=== PATIENT | female | born 1965 | race Caucasian/White ===

== ENCOUNTER 2016-07-02 04:24 | Inpatient (IN) | payer OTHER ==
[2016-07-02] MEDS ORDERED: DUONEB (A & A) INH ONE (04:32)
[2016-07-02 04:45] LABS: MANUAL DIFF NEEDED? NO
[2016-07-02 04:46] LABS: BASO% 0.2 % (0.0-0.8); EOS# 0.01 X1000 (0.0-0.7); EOS% 0.1 % (0.0-10.0); HEMATOCRIT 43.8 % (37.0-47.0); HEMOGLOBIN 13.5 g/dL (12.0-16.0); IMM GRAN# 0.08 X1000 (0.0-0.04); IMM GRAN% 0.5 % (0.0-0.5); LYMPH# 1.86 X1000 (1.2-3.4); LYMPH% 11.2 % (20.5-51.1); MCH 29.2 PG (27-31); MCHC 30.8 g/dL (33-37); MCV 94.8 FL (81-99); MONO# 1.42 X1000 (0.11-0.59); MONO% 8.5 % (1.7-9.3); MPV 9.4 FL (7.4-10.4); NEUT% 79.5 % (42.2-75.2); PLT 260 X1000 (130-400); RBC 4.62 XMIL (4.2-5.4)
[2016-07-02 04:58] LABS: INR 0.92 (0.86-1.15); PROTIME 12.7 Seconds (12.1-15.5)
[2016-07-02 04:59] LABS: PTT PL 24.5 Seconds (22.6-43.9)
[2016-07-02 05:12] LABS: AGAP 11; ALBUMIN 4.5 g/dL (3.5-5.0); ALKALINE PHOSPHATASE 64 U/L (32-104); BUN 19 mg/dL (8-22); CALCIUM 9.1 mg/dL (8.8-10.2); CHLORIDE 98 mmol/L (98-107); CK PROFILE 79 U/L (24-173); COSMO 291; GOT 18 U/L (10-30); GPT 18 U/L (10-36); MAGNESIUM 1.8 mg/dL (1.5-2.7); POTASSIUM 4.2 mmol/L (3.5-5.1); SODIUM 142 mmol/L (136-145); TCO2 33 mmol/L (25-35); TOTAL PROTEIN 7.2 g/dL (6.3-8.3)
--- NOTE | 2016-07-02 05:35 | PROVIDER DOCUMENTATION ---
HPI-Respiratory General - General Source: patient - History of Present Illness-Resp Severity in ED: reports: severe Onset/Duration: reports: unsure, this morning Timing: reports: still present, improving Episode Frequency: occasional episodes Current Respiratory Medication Therapy: Initiated A/A nebulizer Modifying Factors: improves with: albuterol nebulizer, oxygen Associated Symptoms: reports: hyperventilating. denies: cough, nasal drainage Similar Symptoms Previously?: Yes Recently seen or treated by another doctor?: No <Robi Delcid - Last Filed: 07/02/16 05:30> <Fco Aguayo - Last Filed: 07/02/16 07:28> - General Chief Complaint: Shortness of Breath Stated Complaint: AMS, LOW O2 SAT Time Seen by Provider: 07/02/16 05:29 Allergies/Adverse Reactions: Patient Allergies Allergy/AdvReac Type Severity Reaction Status Date / Time oxycodone HCl * Allergy Unknown HEADACHE Verified 07/02/16 04:43 [From OxyContin] Home Medications: Home Medication List Medication Instructions Recorded Confirmed Last Taken Type Acetaminophen [Tylenol] 650 mg PO Q6H PRN 03/05/16 07/02/16 03/03/16 09:00 History Albuterol Sulfate 1 dose NEB 4XDAY 03/05/16 07/02/16 03/04/16 20:30 History Aspirin [Adult Low Dose Aspirin EC] 81 mg PO DAILY 03/05/16 07/02/16 03/04/16 08 :30 History Benztropine [Cogentin] 1 mg PO 4XDAY 03/05/16 07/02/16 03/04/16 20:30 History Budesonide/Formoterol Fumarate 10.2 gm IH BID 03/05/16 07/02/16 03/04/16 20:30 History [Symbicort 160-4.5 Mcg Inhaler] Digoxin [Digox] 125 mcg PO DAILY 03/05/16 07/02/16 03/04/16 08:00 History Divalproex Sodium [Depakote ER] 500 mg PO HS 03/05/16 07/02/16 03/04/16 20:30 History Famotidine [Pepcid] 40 mg PO DAILY 03/05/16 07/02/16 03/04/16 06:00 History Ipratropium [place] Neb [Atrovent 1 dose NEB DAILY 03/05/16 07/02/16 Unknown History Neb] Lactobacillus Rhamnosus GG 1 each PO BID 03/05/16 07/02/16 03/04/16 16:30 History [Culturelle] Levothyroxine [Synthroid] 25 microgm PO DAILY 03/05/16 07/02/16 03/04/16 06:00 History Losartan [Cozaar] 25 mg PO DAILY 03/05/16 07/02/16 03/04/16 08:30 History Magnesium Hydroxide [Milk of 30 ml PO DIRECTED 03/05/16 07/02/16 03/03/16 20: 30 History Magnesia] Megestrol Acetate 40 mg PO DAILY 03/05/16 07/02/16 03/04/16 08:30 History Melatonin 3 mg PO QHS 03/05/16 07/02/16 03/04/16 20:30 History Metoprolol Succinate E.r. [Toprol 25 mg PO BID 03/05/16 07/02/16 03/04/16 16:30 History Xl] Montelukast [Singulair] 10 mg PO QHS 03/05/16 07/02/16 03/04/16 20:30 History Nitroglycerin 0.4 mg SL DIRECTED 03/05/16 07/02/16 Unknown History Olanzapine [Zyprexa] 10 mg PO HS 03/05/16 07/02/16 03/04/16 20:30 History Polyethylene Glycol 3350 [Miralax] 17 gm PO DIRECTED 03/05/16 07/02/16 20:30 History Pravastatin Sodium [Pravachol] 20 mg PO HS 03/05/16 07/02/16 03/04/16 20:30 History Tamsulosin [Flomax] 0.4 mg PO DAILY 03/05/16 07/02/16 03/04/16 08:30 History Trazodone [Desyrel] 150 mg PO QHS 03/05/16 07/02/16 03/04/16 20:30 History Prednisone 20 mg PO DAILY #30 tablet 03/13/16 07/02/16 Unknown Rx Buspirone HCl 7.5 mg PO QHS 07/02/16 07/02/16 Unknown History Lorazepam [Ativan] 1 mg PO BID 07/02/16 07/02/16 Unknown History Lorazepam [Ativan] 1 mg PO QHS 07/02/16 07/02/16 Unknown History Tramadol [Ultram] 50 mg PO Q4H PRN PRN 07/02/16 07/02/16 Unknown History - History of Present Illness-Resp Nature of Presenting Problem: found on the floor by bed without o2 sats in 49.hx of copd and alzheimers on lots of meds (Robi Delcid) Review of Systems - Adult - REVIEW OF SYSTEMS - ADULT Constitutional: denies: fever Eyes: denies: redness Cardiovascular: reports: other (tachycardia) Respiratory: reports: shortness of breath, wheezing. denies: chronic cough, hemoptysis Gastrointestinal: denies: vomiting Genitourinary: reports: no symptoms reported Musculoskeletal: reports: no symptoms reported Integumentary: reports: no symptoms reported Neurological: reports: no symptoms reported Psychiatric: reports: other (demented) Endocrine: reports: no symptoms reported Hematologic/Lymphatic: reports: no symptoms reported Allergic/Immunologic: reports: no symptoms reported <Robi Delcid - Last Filed: 07/02/16 05:30> Past History - Adult - PAST MEDICAL HISTORY-ADULT Review of Records: reports: Nursing Assessment Review, Medications Reviewed, Social history reviewed & non-contributory. Major Childhood Illnesses: reports: denies history Cardiovascular: reports: CAD, CHF, HTN, hyperlipidemia, [place] Respiratory: reports: asthma, COPD, sleep apnea Gastrointestinal: reports: denies history Obstetrical/Gynecological: reports: denies history Genitourinary: reports: denies history Musculoskeletal: reports: denies history Neurological: reports: denies history Psychiatric: reports: bipolar Endocrine/Immune: reports: denies history Other Conditions: reports: denies history - PRIOR SURGERIES/PROCEDURES Surgical/Procedure History: reports: hysterectomy - PRIOR HOSPITALIZATIONS Prior Hospitalizations: reports: for similar symptoms - IMMUNIZATION STATUS Childhood Immunizations: See Nurse Assessment Flu Vaccine: See Nurse Assessment - FAMILY HISTORY Family History: reviewed, not pertinent <Robi Delcid - Last Filed: 07/02/16 05:30> Physical Exam-General - PHYSICAL EXAM-ADULT Initial Vital Signs Reviewed: Yes - CONSTITUTIONAL General Appearance: severe distress - EYES Eyes: PERRL/EOMI - HEAD, EARS, NOSE, MOUTH & THROAT HENMT: normocephalic/atraumatic, pharynx normal - NECK Neck: supple - RESPIRATORY Respiratory: respiratory distress, rhonchi, wheezing, increased rate - CARDIOVASCULAR Cardiovascular: tachycardia - GASTROINTESTINAL (ABDOMEN) Abdominal Exam: soft, distended. negative: guarding, rigid, rebound, tenderness - LYMPHATIC Lymphatic: no adenopathy - MUSCULOSKELETAL Back Exam: normal inspection Extremity: normal range of motion. negative: pedal edema, swelling - SKIN Integumentary: normal color, normal turgor - NEUROLOGIC Neurologic: grossly normal - PSYCHIATRIC Psych/Mental Status: oriented x 3 <Robi Delcid - Last Filed: 07/02/16 05:30> Progress - EKG 1 Time of EKG reading by physician:: 05:38 EKG Read and Signed by:: Robi Delcid EKG Interpretation (*Must complete 3 of following elements*): Abnormal Rate: 149 Rhythm: sinus tachycardia [place]: normal QRS: Q Waves present ST Wave: normal Prior EKG Comparison: unchanged from prior - XRAY 1 XRAY Study: Chest Impression: Abnormal (increased interstitial markings) <Robi Delcid - Last Filed: 07/02/16 05:30> - REASSESSMENT Reassessment #1 Time Reassessed: 06:26 Status: unchanged (Took over pt's care at 6AM, and pt was examined. Pt is lethartgic and pt can answer simple questions. Daughter concerns for her mental status. ABG and CT head ordered. Cardizem 15mg IV given, because per check out her UV=188c before the breathing Tx.) Reassessment #2 Time Reassessed: 06:32 Status: other (ABG results came back- PCO2 = 86. Daughter states that pt is DNR , but wants intubation and ventilation and she was on vent before. After talking to daughter, she requests to have a trail for Bi-PAP and she does not want pt to be intubated yet.) - XRAY 1 XRAY Study: Chest XRAY Interpretation: Pulmonary edema - CT/MRI 1 CT Study: Head Impression: Normal - CONSULTS/PCP/HOSPITALIST Notification Time Discussed: 07:28 Reason/Comments: Admit to Dr. Benavidez/ICU <Fco Aguayo X - Last Filed: 07/02/16 07:28> - PLAN OF CARE/RESULTS Progress/Plan/Lab Results: Abnormal Lab Results 07/02/16 07/02/16 07/02/16 04:35 04:35 04:35 WBC RBC Hgb Hct MCV MCH MCHC RDW Std Deviation Plt Count MPV Immature Gran % (Auto) Neut % (Auto) Lymph % (Auto) Reagan % (Auto) Eos % (Auto) Baso % (Auto) Immature Gran # (Auto) Neut # (Auto) Lymph # (Auto) Reagan # (Auto) Eos # (Auto) Baso # (Auto) PT INR APTT (Factor Assay) D-Dimer Specimen Type Sample Site pH pCO2 pO2 HCO3 Base Excess Oxyhemoglobin ABG O2 Sat (Calculated) ABG O2 Saturation ABG Carboxyhemoglobin ABG Methemoglobin Shawn Test A-a O2 Difference Total Hemoglobin Lactate Liter Flow Blood Gas Modality FiO2 % Sodium 142 Potassium 4.2 Chloride 98 Carbon Dioxide 33 Anion Gap 11 BUN 19 Creatinine 0.7 Estimated GFR/1.73 m2 > 60 BUN/Creatinine Ratio 27 Glucose 195 H Calculated Osmolality 291 Calcium 9.1 Magnesium 1.8 Total Bilirubin 0.20 AST 18 ALT 18 Alkaline Phosphatase 64 Creatine Kinase 79 Troponin T 0.018 Tzu-M-Cyjjaucccyy Pept 319 H Total Protein 7.2 Albumin 4.5 Globulin 3.0 Albumin/Globulin Ratio 2.0 Urine Source Urine Color Urine Clarity Urine pH Ur Specific [place] Urine Protein Urine Ketones Urine Blood Urine Nitrite Urine Bilirubin Urine Urobilinogen Urine Microscopic RBC Urine WBC Urine Microscopic WBC Ur Epithelial Cells Urine Bacteria Urine Glucose 07/02/16 07/02/16 07/02/16 04:35 04:35 05:20 WBC 16.66 H RBC 4.62 Hgb 13.5 Hct 43.8 MCV 94.8 MCH 29.2 MCHC 30.8 L RDW Std Deviation 15.9 H Plt Count 260 MPV 9.4 Immature Gran % (Auto) 0.5 Neut % (Auto) 79.5 H Lymph % (Auto) 11.2 L Reagan % (Auto) 8.5 Eos % (Auto) 0.1 Baso % (Auto) 0.2 Immature Gran # (Auto) 0.08 H Neut # (Auto) 13.26 H Lymph # (Auto) 1.86 Reagan # (Auto) 1.42 H Eos # (Auto) 0.01 Baso # (Auto) 0.03 PT 12.7 INR 0.92 APTT (Factor Assay) 24.5 D-Dimer 1.12 H Specimen Type Sample Site pH pCO2 pO2 HCO3 Base Excess Oxyhemoglobin ABG O2 Sat (Calculated) ABG O2 Saturation ABG Carboxyhemoglobin ABG Methemoglobin Shawn Test A-a O2 Difference Total Hemoglobin Lactate Liter Flow Blood Gas Modality FiO2 % Sodium Potassium Chloride Carbon Dioxide Anion Gap BUN Creatinine Estimated GFR/1.73 m2 BUN/Creatinine Ratio Glucose Calculated Osmolality Calcium Magnesium Total Bilirubin AST ALT Alkaline Phosphatase Creatine Kinase Troponin T Kop-D-Jsqqopdobpy Pept Total Protein Albumin Globulin Albumin/Globulin Ratio Urine Source CATH Urine Color YELLOW Urine Clarity SL. CLOUDY A Urine pH 7.0 Ur Specific [place] 1.015 Urine Protein NEGATIVE Urine Ketones NEGATIVE Urine Blood NEGATIVE Urine Nitrite NEGATIVE Urine Bilirubin NEGATIVE Urine Urobilinogen NORMAL Urine Microscopic RBC <10 Urine WBC NEGATIVE Urine Microscopic WBC <10 Ur Epithelial Cells <10 Urine Bacteria 2+ Urine Glucose 1+(100 mg/dL) A 07/02/16 06:18 WBC RBC Hgb Hct MCV MCH MCHC RDW Std Deviation Plt Count MPV Immature Gran % (Auto) Neut % (Auto) Lymph % (Auto) Reagan % (Auto) Eos % (Auto) Baso % (Auto) Immature Gran # (Auto) Neut # (Auto) Lymph # (Auto) [place] # (Auto) Eos # (Auto) Baso # (Auto) PT INR APTT (Factor Assay) D-Dimer Specimen Type ARTERIAL Sample Site R RADIAL pH 7.31 L pCO2 84 H* pO2 61 HCO3 34.2 H Base Excess 12.2 H Oxyhemoglobin 89.5 L* ABG O2 Sat (Calculated) 17.2 ABG O2 Saturation 92.7 L ABG Carboxyhemoglobin 2.30 ABG Methemoglobin 1.2 Shawn Test YES A-a O2 Difference 119.0 Total Hemoglobin 13.7 Lactate 0.70 Liter Flow 5.0 Blood Gas Modality [place]ULA FiO2 % 40.0 Sodium Potassium Chloride Carbon Dioxide Anion Gap BUN Creatinine Estimated GFR/1.73 m2 BUN/Creatinine Ratio Glucose Calculated Osmolality Calcium Magnesium Total Bilirubin AST ALT Alkaline Phosphatase Creatine Kinase Troponin T Juz-O-Sjtjjacrttd Pept Total Protein Albumin Globulin Albumin/Globulin Ratio Urine Source Urine Color Urine Clarity Urine pH Ur Specific [place] Urine Protein Urine Ketones Urine Blood Urine Nitrite Urine Bilirubin Urine Urobilinogen Urine Microscopic RBC Urine WBC Urine Microscopic WBC Ur Epithelial Cells Urine Bacteria Urine Glucose Orders Category Date Time Status Cardiac Monitoring DIRECTED Care 07/02/16 04:33 Active Lomeli Cath Insertion ORDERED Care 07/02/16 05:17 Active Oxygen Therapy- ED Nursing DIRECTED Care 07/02/16 04:32 Active Saline Loc DIRECTED Care 07/02/16 04:32 Active CHEST-PORTABLE [RAD] Stat Exams 07/02/16 04:33 Taken HEAD W/O CONTRAST [CT] Stat Exams 07/02/16 06:18 Taken ABG [RESP] Routine Lab 07/02/16 06:18 Completed CBC WITH ELECTRONIC DIFF [HEME] Stat Lab 07/02/16 04:35 Completed CK PROFILE [SP CHEM] Stat Lab 07/02/16 04:35 Completed COMPREHENSIVE METABOLIC PANEL [CHEM] Stat Lab 07/02/16 04:[address] D-DIMER PL [COAG] Stat Lab 07/02/16 04:35 Completed MAGNESIUM [CHEM] Stat Lab 07/02/16 04:35 Completed PRO B-NATRIURETIC PEPTIDE Stat Lab 07/02/16 04:[address] Com[address]IME WITH INR PL [COAG] Stat Lab 07/02/16 04:[address] [COAG] Stat Lab 07/02/16 04:35 Completed TROPONIN T Stat Lab 07/02/16 04:[address] W/POSS RFLX CULT [URINALYSIS] Stat Lab 07/02/16 05:20 Completed URINE CULTURE [RM] Routine Lab 07/02/16 05:51 Ordered Albuterol 2.5MG/Ipratrop 0.5MG [Duoneb (A & A)] Med 07/02/16 04:32 Discontinued 3 ml INH NOW ONE Diltiazem [Cardizem] Med 07/02/16 06:18 Discontinued 20 mg IV NOW ONE Aerosol Treatments Routine Oth 07/02/16 04:33 Active Aerosol Treatments Stat Oth 07/02/16 04:32 Active Aerosol Treatments Stat Oth 07/02/16 04:33 Active Pulse Oximetry Stat Oth 07/02/16 04:32 Active EKG [EKG] Stat Ther 07/02/16 04:33 Ordered Vital Signs Temp Pulse Resp BP Pulse Ox 07/02/16 06:13 140 H 35 H 128/90 95 07/02/16 06:06 145 H 35 H 07/02/16 05:10 145 H 35 H 116/93 95 07/02/16 04:35 99 F 151 H 28 H 123/80 99 07/02/16 04:24 99 F 151 H 37 H 123/80 99 oxycodone HCl * [From OxyContin] Allergy (Unknown, Verified 07/02/16 04:43) HEADACHE Acetaminophen [Tylenol] 650 mg PO Q6H PRN 03/05/16 Albuterol Sulfate 1 dose NEB 4XDAY 03/05/16 Aspirin [Adult Low Dose Aspirin EC] 81 mg PO DAILY 03/05/16 Benztropine [Cogentin] 1 mg PO 4XDAY 03/05/16 Budesonide/Formoterol Fumarate [Symbicort 160-4.5 Mcg Inhaler] 10.2 gm IH BID Digoxin [Digox] 125 mcg PO DAILY 03/05/16 Divalproex Sodium [Depakote ER] 500 mg PO HS 03/05/16 Famotidine [Pepcid] 40 mg PO DAILY 03/05/16 Ipratropium [place] Neb [Atrovent Neb] 1 dose NEB DAILY 03/05/16 Lactobacillus Rhamnosus GG [Culturelle] 1 each PO BID 03/05/16 Levothyroxine [Synthroid] 25 microgm PO DAILY 03/05/16 Losartan [Cozaar] 25 mg PO DAILY 03/05/16 Magnesium Hydroxide [Milk of Magnesia] 30 ml PO DIRECTED 03/05/16 Megestrol Acetate 40 mg PO DAILY 03/05/16 Melatonin 3 mg PO QHS 03/05/16 Metoprolol Succinate E.r. [Toprol Xl] 25 mg PO BID 03/05/16 Montelukast [Singulair] 10 mg PO QHS 03/05/16 Nitroglycerin 0.4 mg SL DIRECTED 03/05/16 Olanzapine [Zyprexa] 10 mg PO HS 03/05/16 Polyethylene Glycol 3350 [Miralax] 17 gm PO DIRECTED 03/05/16 Pravastatin Sodium [Pravachol] 20 mg PO HS 03/05/16 Tamsulosin [Flomax] 0.4 mg PO DAILY 03/05/16 Trazodone [Desyrel] 150 mg PO QHS 03/05/16 Prednisone 20 mg PO DAILY #30 tablet 03/13/16 Buspirone HCl 7.5 mg PO QHS 07/02/16 Lorazepam [Ativan] 1 mg PO BID 07/02/16 Lorazepam [Ativan] 1 mg PO QHS 07/02/16 Tramadol [Ultram] 50 mg PO Q4H PRN PRN 07/02/16 I&O 07/01/16 07/02/16 07/03/16 06:59 06:59 06:59 Output Total 350 Balance -350 Laboratory 07/02/16 07/02/16 07/02/16 06:18 05:20 04:35 WBC RBC Hgb Hct MCV MCH MCHC RDW Std Deviation Plt Count MPV Immature Gran % (Auto) Neut % (Auto) Lymph % (Auto) [place] % (Auto) Eos % (Auto) Baso % (Auto) Immature Gran # (Auto) Neut # (Auto) Lymph # (Auto) [place] # (Auto) Eos # (Auto) Baso # (Auto) PT 12.7 INR 0.92 APTT (Factor Assay) 24.5 D-Dimer 1.12 H Specimen Type ARTERIAL Sample Site R RADIAL pH 7.31 L pCO2 84 H* pO2 61 HCO3 34.2 H Base Excess 12.2 H Oxyhemoglobin 89.5 L* ABG O2 Sat (Calculated) 17.2 ABG O2 Saturation 92.7 L ABG Carboxyhemoglobin 2.30 ABG Methemoglobin 1.2 Shawn Test YES A-a O2 Difference 119.0 Total Hemoglobin 13.7 Lactate 0.70 Liter Flow 5.0 Blood Gas Modality [place] FiO2 % 40.0 Sodium Potassium Chloride Carbon Dioxide Anion Gap BUN Creatinine Estimated GFR/1.73 m2 BUN/Creatinine Ratio Glucose Calculated Osmolality Calcium Magnesium Total Bilirubin AST ALT Alkaline Phosphatase Creatine Kinase Troponin T Hvx-M-Mmkeowbsnfp Pept Total Protein Albumin Globulin Albumin/Globulin Ratio Urine Source CATH Urine Color YELLOW Urine Clarity SL. CLOUDY A Urine pH 7.0 Ur Specific [place] 1.015 Urine Protein NEGATIVE Urine Ketones NEGATIVE Urine Blood NEGATIVE Urine Nitrite NEGATIVE Urine Bilirubin NEGATIVE Urine Urobilinogen NORMAL Urine Microscopic RBC <10 Urine WBC NEGATIVE Urine Microscopic WBC <10 Ur Epithelial Cells <10 Urine Bacteria 2+ Urine Glucose 1+(100 mg/dL) A 07/02/16 07/02/16 07/02/16 04:35 04:35 04:35 WBC 16.66 H RBC 4.62 Hgb 13.5 Hct 43.8 MCV 94.8 MCH 29.2 MCHC 30.8 L RDW Std Deviation 15.9 H Plt Count 260 MPV 9.4 Immature Gran % (Auto) 0.5 Neut % (Auto) 79.5 H Lymph % (Auto) 11.2 L [place] % (Auto) 8.5 Eos % (Auto) 0.1 Baso % (Auto) 0.2 Immature Gran # (Auto) 0.08 H Neut # (Auto) 13.26 H Lymph # (Auto) 1.86 [place] # (Auto) 1.42 H Eos # (Auto) 0.01 Baso # (Auto) 0.03 PT INR APTT (Factor Assay) D-Dimer Specimen Type Sample Site pH pCO2 pO2 HCO3 Base Excess Oxyhemoglobin ABG O2 Sat (Calculated) ABG O2 Saturation ABG Carboxyhemoglobin ABG Methemoglobin Shawn Test A-a O2 Difference Total Hemoglobin Lactate Liter Flow Blood Gas Modality FiO2 % Sodium Potassium Chloride Carbon Dioxide Anion Gap BUN Creatinine Estimated GFR/1.73 m2 BUN/Creatinine Ratio Glucose Calculated Osmolality Calcium Magnesium Total Bilirubin AST ALT Alkaline Phosphatase Creatine Kinase Troponin T 0.018 Xgo-F-Nftmwekytgo Pept 319 H Total Protein Albumin Globulin Albumin/Globulin Ratio Urine Source Urine Color Urine Clarity Urine pH Ur Specific [place] Urine Protein Urine Ketones Urine Blood Urine Nitrite Urine Bilirubin Urine Urobilinogen Urine Microscopic RBC Urine WBC Urine Microscopic WBC Ur Epithelial Cells Urine Bacteria Urine Glucose 07/02/16 04:35 WBC RBC Hgb Hct MCV MCH MCHC RDW Std Deviation Plt Count MPV Immature Gran % (Auto) Neut % (Auto) Lymph % (Auto) [place] % (Auto) Eos % (Auto) Baso % (Auto) Immature Gran # (Auto) Neut # (Auto) Lymph # (Auto) [place] # (Auto) Eos # (Auto) Baso # (Auto) PT INR APTT (Factor Assay) D-Dimer Specimen Type Sample Site pH pCO2 pO2 HCO3 Base Excess Oxyhemoglobin ABG O2 Sat (Calculated) ABG O2 Saturation ABG Carboxyhemoglobin ABG Methemoglobin Shawn Test A-a O2 Difference Total Hemoglobin Lactate Liter Flow Blood Gas Modality FiO2 % Sodium 142 Potassium 4.2 Chloride 98 Carbon Dioxide 33 Anion Gap 11 BUN 19 Creatinine 0.7 Estimated GFR/1.73 m2 > 60 BUN/Creatinine Ratio 27 Glucose 195 H Calculated Osmolality 291 Calcium 9.1 Magnesium 1.8 Total Bilirubin 0.20 AST 18 ALT 18 Alkaline Phosphatase 64 Creatine Kinase 79 Troponin T Xwq-B-Hpdqmciggxa Pept Total Protein 7.2 Albumin 4.5 Globulin 3.0 Albumin/Globulin Ratio 2.0 Urine Source Urine Color Urine Clarity Urine pH Ur Specific [place] Urine Protein Urine Ketones Urine Blood Urine Nitrite Urine Bilirubin Urine Urobilinogen Urine Microscopic RBC Urine WBC Urine Microscopic WBC Ur Epithelial Cells Urine Bacteria Urine Glucose (Fco Aguayo) Departure <Robi Delcid - Last Filed: 07/02/16 05:30> - Departure Time of Disposition Order: 07:26 Certified Medical Emergency: Emergent <Fco Aguayo - Last Filed: 07/02/16 07:28> - Departure DIAGNOSIS: Respiratory failure Qualifiers: Chronicity: acute Respiratory failure complication: hypercapnia Qualified Code( s): J96.02 - Acute respiratory failure with hypercapnia Acute respiratory failure Qualifiers: Respiratory failure complication: hypercapnia Qualified Code(s): J96.02 - Acute respiratory failure with hypercapnia COPD (chronic obstructive pulmonary disease) with emphysema Qualifiers: Emphysema type: unspecified Qualified Code(s): J43.9 - Emphysema, unspecified COPD (chronic obstructive pulmonary disease) Qualifiers: COPD type: unspecified COPD Qualified Code(s): J44.9 - Chronic obstructive pulmonary disease, unspecified Disposition: ADMITTED INPATIENT 09 Condition: Serious Physician Attestation
[2016-07-02 05:37] LABS: URINE SOURCE CATH
[2016-07-02 05:48] LABS: BILIRUBIN URINE NEGATIVE (NEGATIVE); BLOOD URINE NEGATIVE (NEGATIVE); CLARITY SL. CLOUDY (CLEAR); COLOR YELLOW; LEUKOCYTES URINE NEGATIVE (NEGATIVE); NITRITE URINE NEGATIVE (NEGATIVE); PROTEIN URINE NEGATIVE (NEGATIVE); SP GRAVITY URINE 1.015; UROBILINOGEN URINE NORMAL
[2016-07-02 05:51] LABS: URINE CULTURE PL NEEDED? YES; URINE EPITHELIAL CELLS <10 /HPF (<10); URINE RBC <10 /HPF (<10); URINE WBC <10 /HPF (<10)
[2016-07-02] MEDS ORDERED: CARDIZEM IV ONE (06:18)
[2016-07-02 06:25] LABS: BE 12.2 mmoll (-3.0-3.0); BLOOD TYPE ARTERIAL; DRAW SITE R RADIAL; METHB 1.2 % (0.0-1.5); O2(CT) 17.2 mL/dL (15.0-23.0); PO2(98.6) 61 mmHg (60-100); SAMPLE BLOOD; SAO2 92.7 % (95.0-100.0); THB 13.7 g/dL (11.5-17.4); pH(98.6) 7.31 (7.35-7.45)
[2016-07-02 06:28] LABS: PCO2(98.6) 84 mmHg (35-45)
[2016-07-02 06:29] LABS: ALLEN TEST YES; MODALITY CANNULA
[2016-07-02] MEDS ORDERED: LEVAQUIN 750 MG/D5W 150 ML IV ONE (07:29)
--- NOTE | 2016-07-02 07:39 | Diag Imaging Result Document ---
PROCEDURE NAME: HEAD W/O CONTRAST - 07/02/2016 CT OF THE HEAD WITHOUT CONTRAST: FINDINGS: The study is suboptimal due to patient motion. There is no evidence of mass effect, bleed, or abnormal extraaxial fluid collection. The visualized paranasal sinuses are clear, and there is no evidence of acute bony disease. IMPRESSION: No acute disease.
--- NOTE | 2016-07-02 07:41 | Diag Imaging Result Document ---
PROCEDURE NAME: CHEST-PORTABLE - 07/02/2016 AP PORTABLE CHEST: TIME: 0444 hours. FINDINGS: The heart size is within normal limits. The pulmonary vascularity is somewhat prominent, and there is a diffusely prominent interstitial pattern. The more focal opacification of the lower lobe seen on 03/05/2016 is no longer present. The lungs are better expanded. There may be some peribronchial thickening throughout both lungs. IMPRESSION: The possibility of interstitial pulmonary edema, bronchitis, or even a mild bronchopneumonia cannot be excluded.
--- NOTE | 2016-07-02 07:59 | EKG Report ---
Test Performed on : 07/02/2016 04:52:43 AM Test Reason : CHEST PAIN Blood Pressure : / mmHG Vent. Rate : 149 BPM Atrial Rate : 149 BPM P-R Int : 120 ms QRS Dur : 070 ms QT Int : 330 ms P-R-T Axes : 075 069 086 degrees QTc Int : 519 ms Sinus tachycardia. Anterolateral infarct (cited on or before 25-JAN-2014) Abnormal ECG When compared with ECG of 05-MAR-2016 01:20, No significant change was found Unconfirmed Result
--- NOTE | 2016-07-02 09:29 | ED EKG INTERP ---
EKG Interpretation - EKG Time of EKG reading by physician:: 09:26 EKG Read and Signed by:: Fco Aguayo EKG Interpretation (*Must complete 3 of following elements*): Abnormal Rate: 149 Rhythm: Sinus Tachycardia [place]: normal QRS: other (Anterolateral infarct, age undetermined) PA Interval: normal ST Wave: normal Attestation - Scribe Verification/Attestation Scribe:: Agata Avendano Acting as Scribe for:: Fco Aguayo Scribe documention review:: This chart was documented by a scribe and accurately reflects the service the provider performed and the decisions made by the provider.
[2016-07-02 09:36] LABS: BE 11.4 mmoll (-3.0-3.0); BLOOD TYPE ARTERIAL; DRAW SITE L RADIAL; METHB 1.3 % (0.0-1.5); O2(CT) 17.7 mL/dL (15.0-23.0); PO2(98.6) 77 mmHg (60-100); SAMPLE BLOOD; SAO2 96.6 % (95.0-100.0); THB 13.5 g/dL (11.5-17.4); pH(98.6) 7.31 (7.35-7.45)
[2016-07-02 10:27] LABS: ALLEN TEST YES; MODALITY BI PAP; PCO2(98.6) 82 mmHg (35-45)
[2016-07-02] MEDS ORDERED: LASIX IV ONE (11:50)
[2016-07-02] MEDS ORDERED: DUONEB (A & A) INH PRN (11:50)
[2016-07-02] MEDS ORDERED: LASIX ONE (12:00)
[2016-07-02] MEDS ORDERED: PROTONIX IV SCH (12:00)
[2016-07-02] MEDS ORDERED: SOLU-MEDROL IV SCH (12:00)
[2016-07-02] MEDS ORDERED: SODIUM CHLORIDE 0.9% INJ SCH (12:00)
[2016-07-02 12:04] LABS: BE 9.9 mmoll (-3.0-3.0); BLOOD TYPE ARTERIAL; DRAW SITE R RADIAL; METHB 1.2 % (0.0-1.5); O2(CT) 18.2 mL/dL (15.0-23.0); PO2(98.6) 82 mmHg (60-100); SAMPLE BLOOD; SAO2 96.9 % (95.0-100.0); THB 13.8 g/dL (11.5-17.4); pH(98.6) 7.28 (7.35-7.45)
[2016-07-02 12:15] VITALS: BP 140/72
[2016-07-02] MEDS ORDERED: VANCOMYCIN IV PER PHARMACY MISC SCH (12:15)
[2016-07-02] MEDS ORDERED: NITROGLYCERIN TOP SCH (12:15)
[2016-07-02] MEDS ORDERED: MORPHINE ONE (12:29)
[2016-07-02] MEDS ORDERED: LOVENOX SUBQ ONE (12:30)
[2016-07-02] MEDS ORDERED: LASIX IV SCH ×2 (12:30→21:00)
[2016-07-02] MEDS ORDERED: MORPHINE IV PRN (12:30)
[2016-07-02 12:47] LABS: ALLEN TEST YES; MODALITY BI PAP
[2016-07-02] MEDS ORDERED: QUELICIN ONE (12:50)
[2016-07-02] MEDS ORDERED: AMIDATE ONE (12:50)
[2016-07-02] MEDS ORDERED: MAXIPIME 1 GM/D5W 50 ML IV SCH (13:00)
[2016-07-02] MEDS ORDERED: MAXIPIME 1 GM/NS 50 ML IV SCH (13:00)
[2016-07-02] MEDS ORDERED: DIPRIVAN 1% ONE (13:44)
[2016-07-02] MEDS ORDERED: DIPRIVAN 1% 100 ML ONE (13:44)
[2016-07-02] MEDS ORDERED: VANCOMYCIN 1,800 MG in NS 250 ML IV ONE (14:00)
[2016-07-02] MEDS ORDERED: EPINEPHRINE SYRINGE ONE (15:00)
[2016-07-02] MEDS ORDERED: ATROPINE SYRINGE ONE (15:00)
--- NOTE | 2016-07-02 15:16 | CONSULTATION ---
DATE OF CONSULTATION: 07/02/2016 INDICATION FOR THE CONSULTATION: Congestive heart failure, dyspnea. HISTORY OF PRESENT ILLNESS: Ms. Drew is a 50-year-old, white female who is apparently a resident of a local longterm. She has a long history of systolic heart failure with ICD in place. In addition, she has a severe COPD on home oxygen therapy. Apparently the patient was found unresponsive next to her bed with her oxygen off. Her O2 saturation was possibly in the 50s or so. She was brought to the ER and placed on BiPAP. She had significant bilateral infiltrates noted. At the time my examination the patient is not able to answer much. BiPAP is in place. She is breathing roughly 30 times a minute and they are actually preparing to intubate her. PAST MEDICAL HISTORY: 1. Significant for systolic heart failure with ICD implant. 2. Hypertension. 3. COPD. 4. Bipolar. 5. Asthma. SOCIAL HISTORY: She is a resident of [facility]. She continues to smoke. She is on home oxygen. FAMILY HISTORY AND REVIEW OF SYSTEMS: Unable to be obtained secondary to the patient's intubated status. PHYSICAL EXAMINATION: At the time of my initial examination she was afebrile. Heart rate was in the 120s to 130s showing sinus tach. Her respiratory rate was in the 30s to 40s. Blood pressure was 140/72. She was saturating in the high 90s to 100s on 100% FiO2. Generally: In no mild to moderate distress secondary to shortness of breath but relatively calm in bed. HEENT: Oropharynx is moist. Poor dentition. Eye examination shows pink conjunctivae, white sclerae. Neck: Examination shows no obvious thyromegaly or thyroid tenderness. Cardiovascular: She is in a tachycardic but regular rhythm. Current telemetry shows sinus tach as does her EKG. Her EKG does not demonstrate any clear evidence of ischemic changes. She potentially has evidence for an old anterior infarct. Chest Exam: Again tachypneic. She has bilateral end-expiratory wheezes with rales heard throughout her lung pierce. Abdomen: Soft, nontender, somewhat protuberant. Bowel sounds are intact. Skin Exam: Warm and dry throughout. Neurologic: She is moving all extremities well. Cranial nerves 2-12 are intact. PERTINENT DATA: Her EKG is as above. Her white count was 16. Her hematocrit 43, platelet count is 260,000. Her ABG shows a pH of 7.28, a pCO2 of 86, PO2 of 82. Sodium 142, potassium 4.2. BUN 19. Creatinine 0.7. TSH is 4.36 and her proBNP was 319. Dig level 0.5. ASSESSMENT: Respiratory failure probable multifactorial. PLAN: During my examination and evaluation of the patient's laboratories she ultimately was intubated. Shortly after the intubation the patient lost a pulse and she was noted to go into a backup pacing rhythm. The patient was noted to be a do not resuscitate in the manner of no chest compressions and no shocks. ACLS medications were administered in multiple rounds including epinephrine and bicarb. She was bagged. She had appropriate breath sounds for all lung pierce. She did have thick secretions coming back through the tube that were aspirated out multiple times. EKG demonstrated what appeared to be a wide complex rhythm after multiple doses of epi. It did not appear consistent with a myocardial infarction. The code was initiated at 1352. We eventually called the code at 1417. The patient persisted for 25 minutes with no palpable pulse. In addition, we used a Doppler to try to auscultate a pulse and there was no Dopplerable pulse. The patient's family was present and available during the procedure and were aware of her grave condition. Again multiple attempts were made with the ACLS medications but obviously with inability to use compressions per the DNR order we were likely unable to give effective resuscitation. Ultimately again as said before the code was called at 1417.
[2016-07-02] MEDS ORDERED: DUONEB (A & A) INH SCH (15:30)
--- NOTE | 2016-07-02 17:08 | EKG Report ---
Test Performed on : 07/02/2016 2:03:51 PM Test Reason : rhythm change Blood Pressure : / mmHG Vent. Rate : 068 BPM Atrial Rate : 068 BPM P-R Int : 174 ms QRS Dur : 088 ms QT Int : 310 ms P-R-T Axes : -06 000 073 degrees QTc Int : 329 ms Age and gender specific ECG analysis Indeterminate axis clifford rhythm Low voltage QRS Anteroseptal infarct , possibly acute Inferolateral injury pattern ACUTE NE / STEMI Abnormal ECG When compared with ECG of 02-JUL-2016 14:03, (Unconfirmed) Sinus rhythm. has replaced Wide QRS rhythm. Confirmed by Robi Delcid MD ([id number]) on 07/15/2016 9:10:21 PM
[2016-07-02 19:37] LABS: PCO2(98.6) 86 mmHg (35-45)
[2016-07-03] MEDS ORDERED: VANCOMYCIN 1,400 MG in NS 250 ML IV SCH (14:00)
--- NOTE | 2016-07-30 07:53 | HISTORY AND PHYSICAL ---
CHIEF COMPLAINT: Shortness of breath. HISTORY OF PRESENT ILLNESS: This is a 50-year-old female with a history of congestive heart failure with an ICD in place, severe COPD on home O2. She was found unresponsive next to her bed with her oxygen off. According to the records, her O2 saturation was possibly in the 50s on EMS arrival. She was brought to the ER and placed on BiPAP. At the time of my exam, she is on BiPAP. She is breathing 38 to 40 times a minute, and she is unable to answer questions. She will nod yes or no periodically. PAST MEDICAL HISTORY: Systolic heart failure with an AICD implant, hypertension, COPD, bipolar disorder, and asthma. PAST SURGICAL HISTORY: Hysterectomy, right hand surgery. SOCIAL HISTORY: She is a resident of [facility]. She does continue to smoke. She is on home oxygen. REVIEW OF SYSTEMS: Unable to obtain from the patient due to her respiratory distress. PHYSICAL EXAMINATION: VITAL SIGNS: Blood pressure was 140/72, heart rate is in the 130s to 140s with respirations in the upper 30s to 40s. She is maintaining saturations in the 90% to 95% range on 100% O2 via BiPAP. GENERAL: She is in mild distress secondary to shortness of breath. CARDIOVASCULAR: Regular rate and rhythm. Tachycardic. S1 and S2 appreciated. PULMONARY: Bilateral end-expiratory wheezes with rales throughout bilateral lungs. GASTROINTESTINAL: Soft, slightly distended with bowel sounds in all 4 quadrants. SKIN: Warm and dry. EXTREMITIES: She does move all extremities. She does withdraw from pain. She does nod yes or no to questions. DIAGNOSTIC DATA: WBC is 16.6 with a hemoglobin of 13.5, hematocrit 43.8, and platelets 260,000. D-dimer was 1.12. Sodium 142, potassium 4.2, BUN 19, creatinine 0.7 with a glucose of 195. TSH is 4.36. Troponin is 0.018. A CT of the head reveals no acute processes. Chest x-ray reveals a possibility of interstitial pulmonary edema, bronchitis or mild bronchopneumonia. ASSESSMENT: 1. Acute respiratory failure with hypercapnia. 2. Chronic obstructive pulmonary disease, acute exacerbation. 3. Metabolic encephalopathy. 4. Leukocytosis. 5. Possible pulmonary edema. 6. Possible bronchitis or even bronchopneumonia per chest x-ray read. PLAN: The patient has had been admitted to ICU. She is currently on BiPAP. Respirations are in the high 30s to 40s. She is becoming tired. She occasionally nods yes or no to questions asked. Lungs, she has wheezes and rales throughout. A review of her chart, she does have a history of systolic heart failure, and it is noted in the emergency room that she did receive her chest x-ray and lung exam. We will go ahead and give Lasix 60 IV now, DuoNeb treatment every 4 hours to every 2 hours p.r.n. If blood cultures were not obtained, we will obtain these. Antibiotic coverage of cefepime and vancomycin. There is a chance that the patient may have aspirated due to the circumstances she was found in. We will consult cardiology. We will attempt to talk to the family and established code status, as the patient is very close to requiring intubation. We will start steroids. Dictated by VIVIANA Nicole for Cruz Benavidez MD
--- NOTE | 2016-07-30 20:02 | DISCHARGE SUMMARY ---
ADMISSION DATE: 07/02/2016 DISCHARGE DATE: 07/02/2016 DIAGNOSES: 1. Acute systolic heart failure. 2. Acute chronic obstructive pulmonary disease exacerbation. 3. Acute hypercapnic respiratory failure. 4. She has history of bipolar disorder. 5. History of continued nicotine abuse. DIAGNOSTICS: 07/02/2016 chest x-ray revealed possibility of interstitial pulmonary edema, bronchitis, or mild bronchopneumonia. Next 07/02/2016 CT of the head revealed no acute disease. No evidence of mass effect, bleeder, abnormal extra-axial fluid collection. HOSPITAL COURSE: Ms. Drew presented to the emergency room after being found next to her bed on the floor unresponsive with her O2 off. According to the chart, she had O2 saturation that was possibly in the 50s on EMS arrival. She was brought to the emergency room and placed on BiPAP. She did wake up and become a little more responsive. At the time of my initial exam, her respirations were in the 35-40 range. She was she was becoming tired. She was close to requiring intubation. She was on 100% O2 at this time also. Due to her history of systolic heart failure, she was given 60 mg of Lasix and within an hour she did diurese a little bit over a liter and she did state that she could breathe better. Her respirations did go down to the 30-32 range. Her daughter was not present, but her sister was at the bedside. We did discuss code status with the patient. The patient had been on a ventilator in the past with having pneumonia and was able to get off the ventilator. Due to the pneumonia diagnosis, she did nod yes to going back on the ventilator. The sister was in agreement with this. When asked about chest compressions, the patient did nod no and the sister said absolutely not. She told them that she had seen this happen to her parents and she did not want chest compressions. They both did agree to emergency medicines per ACLS protocol. She did not want to be defibrillated or cardioverted. Cardiology did come to evaluate the patient during this time. Anesthesia arrived to intubate the patient. Shortly after intubation the patient lost pulse and was noted to go into a backup pacing rhythm. We brought the sister in to the room with the patient and she continued to agree with the patient's wishes of no chest compressions, no shocks, but emergency medications. ACLS medications were administered to multiple rounds, including epinephrine and bicarbonate. She was bagged. She did have good bilateral breath sounds and good rise and fall of the chest bilaterally. She had very thick secretions coming through her tube at this time, requiring frequent suction. After multiple doses of epinephrine, she went into what appeared to be a wide complex rhythm. She never regained a pulse. This persisted for 25 minutes with no palpable pulse. During this time again, the sister was present throughout the code. After 25 minutes, the code was called at 14:17. Shortly after this the patient's daughter did arrive, was brought into the room, was updated on the events. The daughter's response was this is the first time that I remember see my mom not suffering. The family was allowed private time with the patient. All questions were answered. Dictated by VIVIANA Nicole for Cruz Benavidez MD
== END 2016-07-02 16:30 | disposition expired | DRG 291 ==
LOC: P.ED 04:24 → P.ICU 07:34
PROVIDERS: ATTEND Family Medicine
PROC: 0BH17EZ Insertion of Endotracheal Airway into Trachea, Via Natural or Artificial Opening (ICD-10-PCS; principal; 2016-07-02)
DX: I50.23 Acute on chronic systolic (congestive) heart failure (principal); J96.02 Acute respiratory failure with hypercapnia; G93.41 Metabolic encephalopathy; J44.1 Chronic obstructive pulmonary disease with (acute) exacerbation; I11.0 Hypertensive heart disease with heart failure; Z99.81 Dependence on supplemental oxygen; J45.909 Unspecified asthma, uncomplicated; F31.9 Bipolar disorder, unspecified; F17.210 Nicotine dependence, cigarettes, uncomplicated; Z66 Do not resuscitate; Z95.810 Presence of automatic (implantable) cardiac defibrillator; I25.2 Old myocardial infarction; Z79.899 Other long term (current) drug therapy; Z79.82 Long term (current) use of aspirin; Z79.52 Long term (current) use of systemic steroids
CPT/HCPCS: 31500; 51702; 70450; 71010; 80053; 80162; 81001; 82550; 82805; 83735; 83880; 84443; 84484; 85025; 85379; 85610; 85730; 87040; 87088; 93005; 93010; 94660; 94761; 96365; 96366; 96375; C9113; J0171; J0330; J0461; J1650; J1940; J2270; J2930; 94640-76; 99285-25; S0164